=== PATIENT | male | born 1985 | race Caucasian/White ===

== ENCOUNTER 2022-07-25 15:36 | Emergency (ER) | payer OTHER, SELFPAY ==
[2022-07-25 15:48] VITALS: BP 132/86; PULSE 80; RESP 18; TEMP 36.9; O2SAT 98; BMI 28.9
--- NOTE | 2022-07-25 18:01 | ED_ITS ---
HPI - Chest Pain General Time Seen by Provider: 18:01 Date Seen: 07/25/22 Chief Complaint: Chest Pain Stated Complaint: Chest pains Time Seen by Provider: 07/25/22 18:01 Source: patient and RN notes reviewed Mode of arrival: ambulatory Limitations: no limitations History of Present Illness HPI narrative: Aleksander is a very pleasant 36-year-old male with a history of tobacco use questionable sleep apnea who comes to the emergency room for chest pain. Patient notes the onset of left anterior chest pain that has been coming and going since that time. He notes that movement does not seem to change the pain or activity. He notes he has otherwise been healthy. He has not had any heart problems in the past and has no early family history of heart disease. He does smoke 1 pack of cigarettes a day and occasionally uses marijuana but otherwise denies any other drug use. He uses alcohol only socially. Patient notes that he had been at a treatment center for gambling addiction in April and May of 2022. During that time he would awake suddenly at night be short of breath and have chest discomfort. He thought this was anxiety or a panic attack. He does agree that he smokes. A few nights ago this happened once again. He denies any cough fever sore throat. He notes no new calf pain swelling or history of DVT. He has not had fever or chills. He has not taken any medication for this. Patient had stated that this does radiate into his back but for this examiner he denies change in location of discomfort. Related Data Allergies Allergy/AdvReac Type Severity Reaction Status Date / Time No Known Drug Allergies Allergy Verified 07/25/22 15:52 Review of Systems Status of ROS Reports: 10 or more systems reviewed and unremarkable except as noted in History and below Const Denies: fever or chills Eyes Denies: blurry vision ENMT Denies: throat pain, neck pain, throat swelling or difficulty swallowing Cardio Reports: chest pain; Denies: palpitations, swelling of feet/ankles, shortness of breath with exertion or shortness of breath when lying down Resp Denies: shortness of breath GI Denies: abdominal pain, nausea, vomiting, diarrhea or difficulty swallowing Denies: painful urination or urinary frequency Musculo Denies: neck pain Endo Denies: excessive urination or excessive thirst Allergy/Immuno Denies: throat swelling PFSH PFSH Social History Smoking Status: Never smoker How often do you have a drink containing alcohol: never How often do you have six or more drinks on one occasion: Never AUDIT-C Alcohol total score: 0 Non-prescribed substance use: denies use Exam Narrative Exam Narrative: Patient is alert and oriented very pleasant gentleman in no acute distress Eyes are clear face is symmetrical. Neck is supple without lymphadenopathy Heart with a regular rate and rhythm. No murmur or rub is auscultated. Lungs are clear bilaterally. Abdomen soft nontender without pulsating mass. Lower extremities without edema and no calf tenderness. Negative Homans sign. Const Vital Signs, click to edit/add: Vital Signs - 24 hr 07/25/22 15:48 Temperature 98.4 F Pulse Rate [Pulse Oximeter] 80 Respiratory Rate 18 Blood Pressure [Right Upper Arm] 132/86 Pulse Oximetry 98 Oxygen Delivery Method Room Air Documenting provider has reviewed patient's vital signs: yes Course Course Hospital Course: Due to high patient volume patient had actually been sitting in the waiting room. During the triage process nurses did complete a troponin which was negative as well as do an EKG. We will repeat these values as well as obtain a CBC. At this time differential diagnosis includes chest wall pain, angina, PE, COVID, pneumonia. Patient has no evidence of tachycardia nor hypoxia, no risk factors for DVT and thus I do not think this is a PE. I would not check a D- dimer in this gentleman's case with pretest probability and well's being not applicable. A 2nd EKG and troponin will be ordered. Chest x-ray ordered. Trial of Toradol 15 mg IV x1 given the 1st EKG is negative. Reevaluation(s) Reevaluation #1: Patient feels improvement after the use of Toradol. Vital Signs Vital signs: Initial Vital Signs Temperature 98.4 F 07/25/22 15:48 Temperature Source Temporal Artery Scan 07/25/22 15:48 Pulse Rate 80 07/25/22 15:48 Pulse Rhythm 07/25/22 15:48 Pulse Strength 3+ Normal 07/25/22 15:48 Respiratory Rate 18 07/25/22 15:48 Blood Pressure 132/86 07/25/22 15:48 Blood Pressure Mean 101 07/25/22 15:48 Blood Pressure Position Sitting 07/25/22 15:48 Pulse Oximetry 98 07/25/22 15:48 Oxygen Delivery Method 07/25/22 15:48 Vital Signs Temperature 98.4 F 07/25/22 15:48 Pulse Rate 80 07/25/22 15:48 Respiratory Rate 18 07/25/22 15:48 Blood Pressure 132/86 07/25/22 15:48 Pulse Oximetry 98 07/25/22 15:48 Oxygen Delivery Method 07/25/22 15:48 Temperature 98.4 F 07/25/22 15:48 Pulse Rate 80 07/25/22 15:48 Respiratory Rate 18 07/25/22 15:48 Blood Pressure 132/86 07/25/22 15:48 Pulse Oximetry 98 07/25/22 15:48 Oxygen Delivery Method 07/25/22 15:48 MDM - Chest Pain MDM Narrative Medical decision making narrative: 1. Atypical chest pain-patient has 2- EKGs and cardiac enzymes. Would recommend outpatient follow-up for stress test as well as sleep study. Patient may also use aspirin 81 mg a day until he has his stress test. 2. Tobacco use-suggestions abstinence. 3. Probable sleep apnea-suggest follow-up to be scheduled for sleep study 4. Disposition-home at this time. No evidence of acute coronary syndrome, pericarditis, pneumonia, widened mediastinum. Patient did have improvement with Toradol which does suggest chest wall pain. Of course for worsening symptoms return to the emergency room. Lab Data Attestation: I reviewed the patient's lab results. Labs: Lab Results 07/25/22 07/25/22 07/25/22 Range/Units 17:40 17:42 18:15 WBC 8.65 (4.50-11.00) K/uL RBC 5.06 (4.30-5.90) m/uL Hgb 15.5 (13.5-17.5) gm/dL Hct 44.7 (37.0-53.0) % MCV 88 (80-100) fL MCH 31 (26-34) pg MCHC 35 (32-36) gm/dL RDW Coeff of Danielito 12.8 (11.5-15.5) % Plt Count 325 (140-440) K/uL Neut % (Auto) 56.3 (42.0-72.0) % Lymph % (Auto) 34.2 (20-44) % [place] % (Auto) 7.9 (0.0-11.0) % Eos % (Auto) 1.4 (0.0-7.0) % Baso % (Auto) 0.1 (0.0-3.0) % Neut # (Auto) 4.87 (1.7-7.0) K/uL Lymph # (Auto) 2.96 H (0.90-2.90) K/uL [place] # (Auto) 0.70 (0.00-0.90) K/UL Eos # (Auto) 0.12 (0.00-0.50) K/uL Baso # (Auto) 0.01 (0.00-0.30) K/uL Sodium 139 (135-149) mmol/L Potassium 3.9 (3.6-5.1) mmol/L Chloride 107 (96-114) mmol/L Carbon Dioxide 24 (20-32) mmol/L BUN 17 (5-24) mg/dL Creatinine 0.8 (0.5-1.5) mg/dL Estimated Creat Clear 125.88 Estimated GFR 119 ml/min Glucose 94 (60-115) mg/dL Calcium 9.1 (8.4-10.6) mg/dL Troponin I < 0.01 L (0.01-0.04) ng/mL POC Troponin I 0.01 (0.01-0.04) ng/ml 07/25/22 Range/Units 19:43 WBC (4.50-11.00) K/uL RBC (4.30-5.90) m/uL Hgb (13.5-17.5) gm/dL Hct (37.0-53.0) % MCV (80-100) fL MCH (26-34) pg MCHC (32-36) gm/dL RDW Coeff of Danielito (11.5-15.5) % Plt Count (140-440) K/uL Neut % (Auto) (42.0-72.0) % Lymph % (Auto) (20-44) % [place] % (Auto) (0.0-11.0) % Eos % (Auto) (0.0-7.0) % Baso % (Auto) (0.0-3.0) % Neut # (Auto) (1.7-7.0) K/uL Lymph # (Auto) (0.90-2.90) K/uL [place] # (Auto) (0.00-0.90) K/UL Eos # (Auto) (0.00-0.50) K/uL Baso # (Auto) (0.00-0.30) K/uL Sodium (135-149) mmol/L Potassium (3.6-5.1) mmol/L Chloride (96-114) mmol/L Carbon Dioxide (20-32) mmol/L BUN (5-24) mg/dL Creatinine (0.5-1.5) mg/dL Estimated Creat Clear Estimated GFR ml/min Glucose (60-115) mg/dL Calcium (8.4-10.6) mg/dL Troponin I (0.01-0.04) ng/mL POC Troponin I 0.00 L (0.01-0.04) ng/ml Imaging Data Chest x-ray: Attestation: I have reviewed the pertinent imaging results. My impression: No infiltrates or widened mediastinum. Radiologist's impression: FINDINGS: No focal consolidation, pleural effusion, or pneumothorax. Normal heart size and pulmonary vascularity. The bones are unremarkable. IMPRESSION: No acute cardiopulmonary findings. ECG Data Attestation: I personally reviewed and interpreted this ECG as follows: ECG interpretation date: 07/25/22 Interpretation: EKG 1. By my read shows normal sinus rhythm at a rate of [address] or T-wave changes. EKG 2. By my read shows no acute ST or T-wave changes Discharge Plan Discharge Clinical Impression: Atypical chest pain Patient Disposition: Home, Self-Care Condition: Improved Additional Instructions: Follow up with primary doctor. Return for worsening chest pain or anything else that concerns you. Activity Level: No Restrictions Discharge Diet: Regular Stand Alone Forms: [employer] Info Instructions
[2022-07-25 18:08] LABS: Troponin, Point-of-Care* 0.01 ng/ml (0.01-0.04)
[2022-07-25 18:14] LABS: Chloride* 107 mmol/L (96-114); Potassium* 3.9 mmol/L (3.6-5.1); Sodium* 139 mmol/L (135-149)
--- NOTE | 2022-07-25 18:15 | CRLHL7_ITS ---
For Patients: As a result of the Century Cures Act, medical imaging exams and procedure reports are released immediately into your electronic medical record. You may view this report before your referring provider. If you have questions, please contact your health care provider. INDICATION: Chest pain. TECHNIQUE: Chest 1 view. COMPARISON: None. FINDINGS: No focal consolidation, pleural effusion, or pneumothorax. Normal heart size and pulmonary vascularity. The bones are unremarkable. IMPRESSION: No acute cardiopulmonary findings. Dictated by Ara Ulloa MD @ 07/25/2022 7:25:37 PM (Electronically Signed)
[2022-07-25 18:17] LABS: Blood Urea Nitrogen* 17 mg/dL (5-24); Carbon Dioxide* 24 mmol/L (20-32); Creatinine* 0.8 mg/dL (0.5-1.5); Est. Creatinine Clearance* 125.88; Estimated Glomerular Filt Rate 119 ml/min
[2022-07-25 18:18] LABS: Calcium* 9.1 mg/dL (8.4-10.6); Glucose* 94 mg/dL (60-115)
[2022-07-25 18:28] LABS: Basophils Absolute Auto 0.01 K/uL (0.00-0.30); Basophils Percent Auto 0.1 % (0.0-3.0); Eosinophils Absolute Auto 0.12 K/uL (0.00-0.50); Eosinophils Percent Auto 1.4 % (0.0-7.0); Hematocrit 44.7 % (37.0-53.0); Hemoglobin* 15.5 gm/dL (13.5-17.5); Immature Granulocytes Abs Auto 0.01 K/uL (0.00-0.30); Immature Granulocytes Pct Auto 0.1 %; Lymphocytes Absolute Auto 2.96 K/uL (0.90-2.90); Lymphocytes Percent Auto 34.2 % (20-44); Mean Corpuscular HGB Conc 35 gm/dL (32-36); Mean Corpuscular Hemoglobin 31 pg (26-34); Mean Corpuscular Volume 88 fL (80-100); Monocytes Percent Auto 7.9 % (0.0-11.0); Neutrophils Absolute Auto 4.87 K/uL (1.7-7.0); Neutrophils Percent Auto 56.3 % (42.0-72.0); Platelet Count* 325 K/uL (140-440); RDW Coefficient of Variation % 12.8 % (11.5-15.5); Red Blood Count 5.06 m/uL (4.30-5.90); White Blood Count* 8.65 K/uL (4.50-11.00)
[2022-07-25 18:32] LABS: Slide Review Reflex No
[2022-07-25 18:33] LABS: Troponin I* < 0.01 ng/mL (0.01-0.04)
[2022-07-25] MEDS: KETOROLAC 15 MG/ML inj IVP (18:50)
== END 2022-07-25 19:52 | disposition home or self-care (01) ==
PROVIDERS: Emergency Provider Family Medicine
DX: R07.89 Other chest pain (principal)
CPT/HCPCS: 36415; 71045; 80048; 84484; 85025; 93005; 96374; 99284; J1885

== ENCOUNTER 2023-02-02 13:01 | Outpatient (CLI) | payer OTHER, SELFPAY ==
--- NOTE | 2023-02-02 13:00 | CRLHL7_ITS ---
For Patients: As a result of the Century Cures Act, medical imaging exams and procedure reports are released immediately into your electronic medical record. You may view this report before your referring provider. If you have questions, please contact your health care provider. INDICATION: Dizziness and giddiness. TECHNIQUE: Multiplanar multisequence MR imaging acquired through the brain and internal auditory canals prior to and following intravenous contrast. COMPARISON: None. FINDINGS: The ventricles and sulci are within normal limits for patient age. No mass effect or midline shift. No parenchymal signal abnormalities. No intracranial hemorrhage or pathologic extra-axial fluid collection. No diffusion restriction to suggest acute infarction. No pathologic intracranial enhancement. Incidental mild cerebellar tonsillar ectopia. No mass or pathologic enhancement in the internal auditory canals or cerebellopontine angles. No concerning signal abnormalities in the inner ear structures. No vascular loop in the internal auditory canals. The major arterial flow voids of the skullbase are preserved. The globes are symmetric. Small retention cyst/polyp and mild mucosal thickening in the right maxillary sinus. Minimal right mastoid fluid. IMPRESSION: Unremarkable MRI of the brain and internal auditory canals. Dictated by Russ Solis MD @ 02/02/2023 7:45:57 PM (Electronically Signed)
== END 2023-02-02 13:02 | disposition home or self-care (01) ==
PROVIDERS: PCP Family Medicine; Visit Provider Family Medicine
DX: R42 Dizziness and giddiness (principal)
CPT/HCPCS: 70553; A9575

== ENCOUNTER 2023-12-11 17:10 | Emergency (ER) | payer OTHER, SELFPAY ==
[2023-12-11 17:17] VITALS: BP 137/86; PULSE 63; RESP 18; TEMP 36.8; O2SAT 98; BMI 28.1
--- NOTE | 2023-12-11 17:23 | ED.GENADULT ---
HPI - General Adult General Chief complaint: Dizziness/Vertigo Stated complaint: dizziness, pressure in head Time Seen by Provider: 12/11/23 17:19 History of Present Illness HPI narrative: Patient reports feeling dizziness and headache in posterior head. This started about 4 days ago. Dizziness makes him feel slightly nauseated but not unsteady to walk. Did have a tooth pulled yesterday and he thought that was the cause but this pain and sensation are still present. 37-year-old man presenting to the emergency department with concern initially of dizziness though with clarification he would described as more of a pressure in his head and a the sense of lightheadedness. Worse on looking up into the left a little. Began about 4 days ago has been fairly persistent. Slightly nauseated. It he did have symptoms similar but different perhaps more dizzy with a diagnosis of what sounds to have been peripheral vertigo last year that was thought to be related to a dental infection. He did just have of right upper tooth pulled yesterday thinking that that might be the root of this sensation. No chest pain palpitations or shortness of breath. No fever. Has felt some pressure in the face of various points but denies significant sinus discomfort or history of environmental or seasonal allergies. He does smoke. He was seen in urgent care 2 days ago with what sounds like some degree of an ENT exam and says that things were fine Reviewing records shows MRI January of 2023 was unremarkable. Sounds as though this was done for vertiginous symptoms Related Data Home Medications ?Medication ?Instructions ?Recorded ?Confirmed methylphenidate HCl 10 mg tablet 10 mg PO QDAY 12/31/22 12/31/22 methylphenidate HCl 20 mg 20 mg PO QAM 12/31/22 12/31/22 tablet,extended release Previous Rx's ?Medication ?Instructions ?Recorded diazepam 5 mg tablet 5 mg PO QHS PRN vertigo #14 tabs 12/31/22 dexamethasone 4 mg tablet 8 mg (2 x 4 mg) PO ONCE #2 tabs 01/21/23 fluticasone propionate 50 1 spray intranasal BID #16 grams 01/21/23 mcg/actuation nasal spray,suspension (Flonase Allergy Relief) meclizine 50 mg tablet (Antivert) 25 - 50 mg (0.5 - 1 x 50 mg) PO 01/21/23 BID PRN motion sickness #20 tabs Allergies Allergy/AdvReac Type Severity Reaction Status Date / Time No Known Drug Allergies Allergy Verified 01/21/23 10:50 Review of Systems Status of ROS: Reports: 6 or more systems reviewed and unremarkable except as noted in History and below PFSH PFSH Medical History 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) Surgical History Status post open reduction and internal fixation (ORIF) of fracture ?Z98.890 - Other specified postprocedural states (ICD-10) ?Z87.81 - Personal history of (healed) traumatic fracture (ICD-10) S/P lumbar discectomy ?Z98.890 - Other specified postprocedural states (ICD-10) Social History What is your current living situation?: I presently have a place to live Problems where you live: no known problems In the past 12 months, utilities in danger of being shut off: no In past 12 months, lack of transportation kept you from medical appts, meetings, work, or getting things needed for daily living: no In the past 12 mos, have been you worried that your food would run out before you had money to buy more?: never true In the past 12 mos, the food you bought just didn't last and you didn't have money to buy more?: never true Smoking Status: Current every day smoker What tobacco products do you use: cigarettes Do you use any of these nicotine containing products: None Second hand tobacco smoke exposure: No How often do you have a drink containing alcohol: monthly or less How many standard drinks containing alcohol do you have on a typical day: 3 or 4 How often do you have six or more drinks on one occasion: Never AUDIT-C Alcohol total score: 2 Non-prescribed substance use: marijuana (any form) How often does anyone, including family, friends and others, physically hurt you: never How often does anyone, including family, friends and others, insult or talk down to you: never How often does anyone, including family, friends and others, threaten you with harm: never How often does anyone, including family, friends and others, scream or curse at you: never Little interest or pleasure in doing things: more than half the days Feeling down, depressed, or hopeless: several days Do you think of yourself as: straight/heterosexual Gender Identity: male Are you currently sexually active: Yes Exam Narrative: Exam Narrative: Pleasant. NAD. Breathing easily. Does not sound to be congested nor with any swelling facial erythema or tenderness. Neck is supple nontender. TMs bilaterally are clear. Extraocular movements are full intact. No nystagmus. Head impulse testing is normal. Equal and briskly reactive. Lungs are clear. Heart in regular rate and rhythm without murmur rub or gallop. Well-perfused peripherally though there appears to be some clubbing of the nails on his hands. Oropharyngeal exam without is particular gingivitis are single area of swelling. He does have evidence of pulled tooth looks to be about tooth number 4 on the upper right- --this was the posterior most tooth in his upper right jaw. Const: Vital Signs, click to edit/add: Vital Signs - 24 hr 12/11/23 17:17 Temperature 98.2 F Pulse Rate [Pulse Oximeter] 63 Respiratory Rate 18 Blood Pressure [Ri ght Upper Arm] 137/86 Pulse Oximetry 98 Oxygen Delivery Me thod Room Air Documenting provider has reviewed patient's vital signs: yes Course Vital Signs Vital signs: Initial Vital Signs Temperature 98.2 F 12/11/23 17:17 Temperature Source Temporal Artery Scan 12/11/23 17:17 Pulse Rate 63 12/11/23 17:17 Respiratory Rate 18 12/11/23 17:17 Blood Pressure 137/86 12/11/23 17:17 Blood Pressure Mean 103 12/11/23 17:17 Pulse Oximetry 98 12/11/23 17:17 Oxygen Delivery Method Room Air 12/11/23 17:17 Vital Signs Temperature 98.2 F 12/11/23 17:17 Pulse Rate 63 12/11/23 17:17 Respiratory Rate 18 12/11/23 17:17 Blood Pressure 137/86 12/11/23 17:17 Pulse Oximetry 98 12/11/23 17:17 Oxygen Delivery Method Room Air 12/11/23 17:17 Temperature 98.2 F 12/11/23 17:17 Pulse Rate 63 12/11/23 17:17 Respiratory Rate 18 12/11/23 17:17 Blood Pressure 137/86 12/11/23 17:17 Pulse Oximetry 98 12/11/23 17:17 Oxygen Delivery Method Room Air 12/11/23 17:17 Medications Administered Medications: Discontinued Medications Generic Name Dose Route Start Last Admin Trade Name Vargas PRN Reason Stop Dose Admin Sodium Chloride 1,000 mls @ 1,000 mls/hr 12/11/23 18:14 12/11/23 19:48 0.9 % Sodium Chloride 1000 Ml IV 12/11/23 19:13 Infused .Q1H ONE Infusion Ketorolac Tromethamine 30 mg 12/11/23 18:14 12/11/23 18:48 Ketorolac 30 Mg/Ml Inj IVP 12/11/23 18:15 30 mg ONCE ONE Administration Medical Decision Making MDM Narrative Medical decision making narrative: Offered treatment for what might be some variant of headache. Does not have other stroke symptomatology. Does not actually have dizziness as far as I can tell. We discussed treatment for symptoms which might include fluids ketorolac maybe a little Valium. It sounds as though he is concerned about sinus infection. I had been contemplating scanning his head but maybe looking at his sinuses would be helpful. IV initiated giving. Given ketorolac Head CT reviewed by me looks WNL. I do not see any evidence of sinus inflammation. Radiology over-read as below TECHNIQUE: Multiplanar CT examination of the head was performed without the use of intravenous contrast. INDICATION: Headache. Evaluate for sinusitis. COMPARISON: None. FINDINGS: No loss of hernández-white differentiation to suggest recent territorial infarct. No intracranial hemorrhage, abnormal extra-axial fluid collection, hydrocephalus or midline shift. The ventricles and cerebral sulci are normal in caliber. The basal cisterns are patent. The paranasal sinuses and mastoid air cells remain clear. The orbits and calvarium are unremarkable. The cerebellar tonsils are normal position. IMPRESSION: No acute intracranial findings. Clear paranasal sinuses, no CT evidence of acute sinusitis. On reassessment is improved though still feels a little odd. I do believe he is overall safe for discharge at this time. Medical Records Medical records reviewed: Yes I reviewed the patient's medical records Lab Data Lab results reviewed: Yes I reviewed the patient's lab results Labs: Lab Results 12/11/23 Range/Units 18:45 WBC 7.12 (4.50-11.00) K/uL RBC 4.72 (4.30-5.90) m/uL Hgb 14.7 (13.5-17.5) gm/dL Hct 42.5 (37.0-53.0) % MCV 90 (80-100) fL MCH 31 (26-34) pg MCHC 35 (32-36) gm/dL RDW Coeff of Danielito 12.8 (11.5-15.5) % Plt Count 310 (140-440) K/uL Neut % (Auto) 62.2 (42.0-72.0) % Lymph % (Auto) 31.3 (20-44) % [place] % (Auto) 6.3 (0.0-11.0) % Eos % (Auto) 0.1 (0.0-7.0) % Baso % (Auto) 0.1 (0.0-3.0) % Neut # (Auto) 4.42 (1.7-7.0) K/uL Lymph # (Auto) 2.23 (0.90-2.90) K/uL [place] # (Auto) 0.40 (0.00-0.90) K/UL Eos # (Auto) 0.01 (0.00-0.50) K/uL Baso # (Auto) 0.01 (0.00-0.30) K/uL Abs Immat Gran (auto) 0.00 (0.00-0.30) K/uL Imm/Tot Granulo (auto) 0.0 % Sodium 137 (135-149) mmol/L Potassium 3.8 (3.6-5.1) mmol/L Chloride 108 (96-114) mmol/L Carbon Dioxide 24 (20-32) mmol/L Anion Gap 5 L (7-15) mEq/L BUN 11 (5-24) mg/dL Creatinine 0.8 (0.5-1.5) mg/dL Estimated Creat Clear 124.69 Estimated GFR 118 ml/min Glucose 93 (60-115) mg/dL Calcium 9.1 (8.4-10.6) mg/dL C-Reactive Protein < 0.5 L (0.5-1.0) mg/dL Discharge Plan Discharge Clinical Impression: Pressure in head, Malaise Patient Disposition: Home, Self-Care Condition: Improved Additional Instructions: Hopefully you can get a good night's rest tonight. Be seen for marked increase in head pain, new and focal weakness, repeated vomiting, chest pain or pressure. Do your best to quit smoking. Try to get in a little heart pumping exercise daily. Prescriptions: No Action methylphenidate HCl 10 mg tablet 10 mg PO QDAY methylphenidate HCl 20 mg tablet extended release 20 mg PO QAM diazepam 5 mg tablet 5 mg PO QHS PRN (Reason: vertigo) Qty: 14 1RF meclizine [Antivert] 50 mg tablet 25 - 50 mg PO BID PRN (Reason: motion sickness) Qty: 20 0RF Rx Instructions: 1/2-1 tablet twice daily PRN for vertigo dexamethasone 4 mg tablet 8 mg PO ONCE Qty: 2 0RF Rx Instructions: take two tablets once fluticasone propionate [Flonase Allergy Relief] 50 mcg/actuation spray,suspension 1 spray intranasal BID Qty: 16 0RF Rx Instructions: 1 spray 2x daily administer into each nostril Follow Up/Referrals: Jasen Luis MD [Primary Care Provider] - Stand Alone Forms: [facility] Info Instructions
--- NOTE | 2023-12-11 18:14 | CRLHL7_ITS ---
For Patients: As a result of the Century Cures Act, medical imaging exams and procedure reports are released immediately into your electronic medical record. You may view this report before your referring provider. If you have questions, please contact your health care provider. TECHNIQUE: Multiplanar CT examination of the head was performed without the use of intravenous contrast. INDICATION: Headache. Evaluate for sinusitis. COMPARISON: None. FINDINGS: No loss of hernández-white differentiation to suggest recent territorial infarct. No intracranial hemorrhage, abnormal extra-axial fluid collection, hydrocephalus or midline shift. The ventricles and cerebral sulci are normal in caliber. The basal cisterns are patent. The paranasal sinuses and mastoid air cells remain clear. The orbits and calvarium are unremarkable. The cerebellar tonsils are normal position. IMPRESSION: No acute intracranial findings. Clear paranasal sinuses, no CT evidence of acute sinusitis. Please note that all CT scans at this facility use dose modulation, iterative reconstruction, and/or weight-based dosing when appropriate to reduce radiation dose to as low as reasonably achievable. Dictated by Selvin Silva MD @ 12/11/2023 6:37:55 PM (Electronically Signed)
[2023-12-11] MEDS: KETOROLAC 30 MG/ML inj IVP (18:48)
[2023-12-11] MEDS: 0.9 % SODIUM CHLORIDE 1000 ml 1,000 ML IV (18:48)
[2023-12-11 18:55] LABS: Basophils Absolute Auto 0.01 K/uL (0.00-0.30); Basophils Percent Auto 0.1 % (0.0-3.0); Eosinophils Absolute Auto 0.01 K/uL (0.00-0.50); Eosinophils Percent Auto 0.1 % (0.0-7.0); Hematocrit 42.5 % (37.0-53.0); Hemoglobin* 14.7 gm/dL (13.5-17.5); Lymphocytes Absolute Auto 2.23 K/uL (0.90-2.90); Lymphocytes Percent Auto 31.3 % (20-44); Mean Corpuscular HGB Conc 35 gm/dL (32-36); Mean Corpuscular Hemoglobin 31 pg (26-34); Mean Corpuscular Volume 90 fL (80-100); Monocytes Percent Auto 6.3 % (0.0-11.0); Neutrophils Absolute Auto 4.42 K/uL (1.7-7.0); Neutrophils Percent Auto 62.2 % (42.0-72.0); Platelet Count* 310 K/uL (140-440); RDW Coefficient of Variation % 12.8 % (11.5-15.5); Red Blood Count 4.72 m/uL (4.30-5.90); White Blood Count* 7.12 K/uL (4.50-11.00)
[2023-12-11 18:56] LABS: Slide Review Reflex No
[2023-12-11 19:08] LABS: Chloride* 108 mmol/L (96-114); Potassium* 3.8 mmol/L (3.6-5.1); Sodium* 137 mmol/L (135-149)
[2023-12-11 19:11] LABS: Creatinine* 0.8 mg/dL (0.5-1.5); Est. Creatinine Clearance* 124.69; Estimated Glomerular Filt Rate 118 ml/min
[2023-12-11 19:12] LABS: Anion Gap 5 mEq/L (7-15); Blood Urea Nitrogen* 11 mg/dL (5-24); Calcium* 9.1 mg/dL (8.4-10.6); Carbon Dioxide* 24 mmol/L (20-32); Glucose* 93 mg/dL (60-115)
[2023-12-11 19:17] LABS: C Reactive Protein* < 0.5 mg/dL (0.5-1.0)
== END 2023-12-11 19:57 | disposition home or self-care (01) ==
PROVIDERS: Emergency Provider Family Medicine; PCP Family Medicine
DX: R51.9 Headache, unspecified (principal); R53.81 Other malaise
CPT/HCPCS: 36415; 70450; 80048; 85025; 86140; 96361; 96374; 99284; J1885; J7030

== ENCOUNTER 2024-01-07 19:07 | Emergency (ER) | payer OTHER, SELFPAY ==
[2024-01-07 19:23] VITALS: BP 128/82; PULSE 73; RESP 16; TEMP 36.8; O2SAT 98; BMI 28.1
--- NOTE | 2024-01-07 20:28 | ED_ITS ---
HPI - General Adult General Chief complaint: Dizziness/Vertigo Stated complaint: Tingly in L neck, headache, dizzy Time Seen by Provider: 01/07/24 20:05 Source: patient Mode of arrival: ambulatory Limitations: no limitations History of Present Illness HPI narrative: 38-year-old male coming in today complaining of vertigo. He states that when it gets really bad he can look to the side in the room follows him. He states that he feels good generally right when he wakes up in the morning the hour later kicks in. He has been dealing with this for approximately 1 month. He was seen in our ER at the end of November, head CT was done and was normal. He states that the symptoms continue. He describes a pressure in the back of the head that has been constant over the last month, he denies any changes in his hearing. He states that every now and then he has mild ringing in his ears but it is not constant or daily. He denies any vision changes. He denies falling. He denies head trauma. Patient also states that he had the same problem approximately 1 year ago, he was given meclizine but he never used it. The vertical lasted over a month that time as well. Patient does smoke 3/4 pack cigarettes per day, sleeps only 6 hours per night and snores. Related Data Home Medications ?Medication ?Instructions ?Recorded ?Confirmed methylphenidate HCl 10 mg tablet 10 mg PO QDAY 12/31/22 12/31/22 methylphenidate HCl 20 mg 20 mg PO QAM 12/31/22 12/31/22 tablet,extended release Previous Rx's ?Medication ?Instructions ?Recorded diazepam 5 mg tablet 5 mg PO QHS PRN vertigo #14 tabs 12/31/22 dexamethasone 4 mg tablet 8 mg (2 x 4 mg) PO ONCE #2 tabs 01/21/23 fluticasone propionate 50 1 spray intranasal BID #16 grams 01/21/23 mcg/actuation nasal spray,suspension (Flonase Allergy Relief) meclizine 50 mg tablet (Antivert) 25 - 50 mg (0.5 - 1 x 50 mg) PO 01/21/23 BID PRN motion sickness #20 tabs Allergies Allergy/AdvReac Type Severity Reaction Status Date / Time No Known Drug Allergies Allergy Verified 01/07/24 19:23 Review of Systems Status of ROS: Reports: 10 or more systems reviewed and unremarkable except as noted in History and below PFSH PFSH Medical History 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) Surgical History Status post open reduction and internal fixation (ORIF) of fracture ?Z98.890 - Other specified postprocedural states (ICD-10) ?Z87.81 - Personal history of (healed) traumatic fracture (ICD-10) S/P lumbar discectomy ?Z98.890 - Other specified postprocedural states (ICD-10) Social History What is your current living situation?: I presently have a place to live Problems where you live: no known problems In the past 12 months, utilities in danger of being shut off: no In past 12 months, lack of transportation kept you from medical appts, meetings, work, or getting things needed for daily living: no In the past 12 mos, have been you worried that your food would run out before you had money to buy more?: never true In the past 12 mos, the food you bought just didn't last and you didn't have money to buy more?: never true Smoking Status: Current every day smoker What tobacco products do you use: cigarettes Do you use any of these nicotine containing products: None Second hand tobacco smoke exposure: No How often do you have a drink containing alcohol: monthly or less How many standard drinks containing alcohol do you have on a typical day: 3 or 4 How often do you have six or more drinks on one occasion: Never AUDIT-C Alcohol total score: 2 Non-prescribed substance use: marijuana (any form) How often does anyone, including family, friends and others, physically hurt you : never How often does anyone, including family, friends and others, insult or talk down to you: never How often does anyone, including family, friends and others, threaten you with harm: never How often does anyone, including family, friends and others, scream or curse at you: never Little interest or pleasure in doing things: more than half the days Feeling down, depressed, or hopeless: several days Do you think of yourself as: straight/heterosexual Gender Identity: male Are you currently sexually active: Yes Exam Narrative: Exam Narrative: Well-nourished well-developed patient in no acute distress. Alert and oriented. Answers questions appropriately. Mood and affect are appropriate. Thoughts are goal oriented and rational. No tangential or magical thinking noted. Patient speaks in full sentences without needing to catch his breath. Smells strongly of tobacco. HEENT: Normocephalic atraumatic. Pupils are equally round reactive to light. Extraocular muscles are intact. Conjunctivae are moist without any icterus noted. Moist mucous membranes. Posterior pharynx is normal. Neck is soft without any lymphadenopathy or thyromegaly. No masses are appreciated. TMs are clear bilaterally. Cardiovascular: Heart is regular rate and rhythm S1 and S2 are present without any murmurs. Lungs: Clear to auscultation bilaterally no wheezes rhonchi or rales are appreciated. Patient takes deep breaths without any discomfort. Abdomen: Soft and nontender nondistended with normal bowel sounds. Extremities: Bilateral lower extremities are without edema. Skin: Well perfused without any obvious rashes. Strength is 5/5 of the upper and lower extremities. Reflexes are 2+ and symmetric at the knees. Romberg sign is negative. Cranial nerves 3-12 are normal. [id number] is normal. Delete There is no nystagmus either horizontally or vertically. Gait is normal. I cannot really reproduce his symptoms today. Const: Vital Signs, click to edit/add: Vital Signs - 24 hr 01/07/24 19:23 Temperature 98.2 F Pulse Rate [Pulse Oximeter] 73 Respiratory Rate 16 Blood Pressure [Ri ght Upper Arm] 128/82 Pulse Oximetry 98 Oxygen Delivery Me thod Room Air Course Vital Signs Vital signs: Initial Vital Signs Temperature 98.2 F 01/07/24 19:23 Temperature Source Temporal Artery Scan 01/07/24 19:23 Pulse Rate 73 01/07/24 19:23 Respiratory Rate 16 01/07/24 19:23 Blood Pressure 128/82 01/07/24 19:23 Blood Pressure Mean 97 01/07/24 19:23 Blood Pressure Position Sitting 01/07/24 19:23 Pulse Oximetry 98 01/07/24 19:23 Oxygen Delivery Method Room Air 01/07/24 19:23 Vital Signs Temperature 98.2 F 01/07/24 19:23 Pulse Rate 73 01/07/24 19:23 Respiratory Rate 16 01/07/24 19:23 Blood Pressure 128/82 01/07/24 19:23 Pulse Oximetry 98 01/07/24 19:23 Oxygen Delivery Method Room Air 01/07/24 19:23 Temperature 98.2 F 01/07/24 19:23 Pulse Rate 73 01/07/24 19:23 Respiratory Rate 16 01/07/24 19:23 Blood Pressure 128/82 01/07/24 19:23 Pulse Oximetry 98 01/07/24 19:23 Oxygen Delivery Method Room Air 01/07/24 19:23 Medical Decision Making MDM Narrative Medical decision making narrative: 38-year-old male with her current vertigo. Patient had a head CT approximately 4 weeks ago that was unremarkable. We discussed this sleep hygiene, Marley maneuver, taking his meclizine. Patient does have an appoint with ENT in approximately 20 days and he is encouraged to keep that appointment. I also discussed doing a sleep study as patient does state that he snores. Lastly, we will send him home with hydroxyzine to see if this will help him sleep. Patient is sent home with 15 tablets. Medical Records Medical records reviewed: Yes I reviewed the patient's medical records Discharge Plan Discharge Clinical Impression: Vertigo Patient Disposition: Home, Self-Care Condition: Stable Additional Instructions: Things to consider: Google the Marley maneuver and try that at home. Use your meclizine. Consider doing a sleep study. Consider smoking cessation. Follow-up with ENT as scheduled. Use hydroxyzine at night to help with sleep. Hydroxyzine sent to [facility]. Methylphenidate can also affect sleep, discussed with your DrEric if there is a better time schedule that you can take it. Prescriptions: No Action methylphenidate HCl 10 mg tablet 10 mg PO QDAY methylphenidate HCl 20 mg tablet extended release 20 mg PO QAM diazepam 5 mg tablet 5 mg PO QHS PRN (Reason: vertigo) Qty: 14 1RF meclizine [Antivert] 50 mg tablet 25 - 50 mg PO BID PRN (Reason: motion sickness) Qty: 20 0RF Rx Instructions: 1/2-1 tablet twice daily PRN for vertigo dexamethasone 4 mg tablet 8 mg PO ONCE Qty: 2 0RF Rx Instructions: take two tablets once fluticasone propionate [Flonase Allergy Relief] 50 mcg/actuation spray,suspension 1 spray intranasal BID Qty: 16 0RF Rx Instructions: 1 spray 2x daily administer into each nostril Follow Up/Referrals: Jasen Luis MD [Primary Care Provider] - Stand Alone Forms: Joules Clothing Info Instructions
[2024-01-07] MEDS: hydrOXYzine pamoate 25 MG CAPSULE PO (20:43)
[2024-01-07 20:59] VITALS: BP 121/78; PULSE 71; RESP 16; TEMP 36.8; O2SAT 98
== END 2024-01-07 21:00 | disposition home or self-care (01) ==
PROVIDERS: Emergency Provider Family Medicine; PCP Family Medicine
DX: R42 Dizziness and giddiness (principal)
CPT/HCPCS: 99283; 99284; A9270